=== PATIENT | male | born 1990 | race Caucasian/White ===

== ENCOUNTER 2023-04-29 02:00 | Emergency (ER) | payer SELFPAY ==
[~2023-04-29] VITALS: Ht 157.5 cm; Wt 59.0 kg
[2023-04-29 02:02] VITALS: BP 106/72; PULSE 94; RESP 16; TEMP 98.1; O2SAT 98
== END 2023-04-29 04:00 | disposition left against medical advice (07) ==
LOC: ER 02:00
DX: Z53.21 Procedure and treatment not carried out due to patient leaving prior to being seen by health care provider (principal)
CPT/HCPCS: 99281